=== PATIENT | male | born 1955 | race American Indian/Alaskan Native ===

== ENCOUNTER 2020-05-22 21:41 | Emergency (ER) | payer SELFPAY ==
--- NOTE | 2020-05-23 00:50 | XRay Report ---
"Right hand-3 views INDICATION: right thumb injury. COMPARISON: None. IMPRESSION: Transversely oriented fracture through the distal tuft of the thumb distal phalanx with overlying laceration. 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 Otherwise there are scattered degenerative changes throughout the hand. No retained radiopaque foreign body. Signer Name: Fernando Nelson MD Signed: 05/23/2020 12:46 AM Workstation Name: [id number] | [id number]"
[2020-05-23] MEDS ORDERED: DIPHtheria,PERTUSSIS(ACELL),TETANUS VACCINE/PF 0.5 ML VIAL IM ONE (02:09)
[2020-05-23] MEDS ORDERED: NEOMY 3.5 MG/BACIT 400 UNITS/POLY B 5000 UNITS/GM OINT PACKET TP STA (02:11)
--- NOTE | 2020-05-23 02:12 | Emergency Department Report ---
ED General Adult HPI - General Chief complaint: Extremity Injury, Upper Stated complaint: LACERATION/RT THUMB Time Seen by Provider: 05/23/20 01:36 Source: patient Mode of arrival: Ambulatory Limitations: No Limitations - History of Present Illness Initial comments: 64-year-old -Portuguese male patient presents with complaints of right thumb pain after slamming his finger in the door. He reports he has a cut to the finger and rates his pain as a 5/10 in severity. He denies any loss of sensation, but states there is decreased movement due to the swelling. He is unsure of his last tetanus vaccination. - Related Data Previous Rx's Medication Instructions Recorded Last Taken Type Acetaminophen/Codeine [Tylenol 1 tab PO Q8H PRN #6 tab 05/23/20 Unknown Rx /Codeine # 3 tab] Naproxen 500 mg PO BID PRN #14 tablet 05/23/20 Unknown Rx cephALEXin [Keflex] 500 mg PO Q8HR 7 Days #21 cap 05/23/20 Unknown Rx Allergies Allergy/AdvReac Type Severity Reaction Status Date / Time No Known Allergies Allergy Unverified 05/23/20 00:14 ED Review of Systems ROS: Stated complaint: LACERATION/RT THUMB Other details as noted in HPI Constitutional: denies: chills, fever, malaise Musculoskeletal: joint swelling, arthralgia Skin: as per HPI Neurological: denies: numbness, paresthesias ED Past Medical Hx - Past Medical History Previous Medical History?: Yes Hx Hypertension: Yes - Surgical History Past Surgical History?: No - Social History Smoking Status: Never Smoker Substance Use Type: None - Medications Home Medications: Home Medications Medication Instructions Recorded Confirmed Last Taken Type Acetaminophen/Codeine [Tylenol 1 tab PO Q8H PRN #6 tab 05/23/20 Unknown Rx /Codeine # 3 tab] Naproxen 500 mg PO BID PRN #14 tablet 05/23/20 Unknown Rx cephALEXin [Keflex] 500 mg PO Q8HR 7 Days #21 cap 05/23/20 Unknown Rx ED Physical Exam - General Limitations: No Limitations General appearance: alert, in no apparent distress - Head Head exam: Present: atraumatic, normocephalic - Eye Eye exam: Absent: scleral icterus - Respiratory Respiratory exam: Absent: respiratory distress - Cardiovascular Cardiovascular Exam: Present: regular rate, normal rhythm - Extremities Exam Extremities exam: Present: other (Moderate swelling noted to distal right thumb with small, <1 cm mildly bleeding, laceration noted to dorsal distal thumb; no obvious foreign bodies noted; normal sensation noted) ED Course Vital Signs 05/22/20 05/23/20 05/23/20 23:56 02:19 03:07 Temperature 98.3 F 98.1 F Pulse Rate 110 H 83 Respiratory 18 18 Rate Blood Pressure 172/101 176/110 Blood Pressure 176/110 [Left] O2 Sat by Pulse 98 98 Oximetry 05/23/20 03:47 Temperature 98.2 F Pulse Rate 83 Respiratory 18 Rate Blood Pressure Blood Pressure 151/94 [Left] O2 Sat by Pulse 98 Oximetry ED Medical Decision Making - Radiology Data Radiology results: report reviewed Right hand-3 views INDICATION: right thumb injury. COMPARISON: None. IMPRESSION: Transversely oriented fracture through the distal tuft of the thumb distal phalanx with overlying laceration. 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 Otherwise there are scattered degenerative changes throughout the hand. No retained radiopaque foreign body. - Medical Decision Making 64-year-old -Portuguese male patient presents with complaints of right thumb pain after slamming his finger in the door. He reports he has a cut to the finger and rates his pain as a 5/10 in severity. He denies any loss of sensation, but states there is decreased movement due to the swelling. He is unsure of his last tetanus vaccination. Open fracture of distal phalanx noted on x-ray. Patient finger soaked in Betadine saline mix and thoroughly irrigated. No sutures required. Patient given dose of Ancef and will discharge home with Keflex. Splint placed on finger. Blood pressure noted to be elevated at 172/101, patient admits to prior history however states he has not been on medications. He states he tried to follow-up with [facility] recently but cannot get an appointment. Blood pressure improved after 50 mg oral hydralazine. He is neurologically intact. Discussed importance of follow-up with orthopedics within 24 to 48 hours along with primary care for further evaluation of his blood pressure.. Also discussed signs and symptoms that should prompt immediate return to the emergency department in detail with patient who verbalizes understanding. Patient is stable for discharge home peer Critical care attestation.: If time is entered above; I have spent that time in minutes in the direct care of this critically ill patient, excluding procedure time. ED Disposition Clinical Impression: Elevated blood pressure reading without diagnosis of hypertension Open fracture of right thumb Qualifiers: Encounter type: initial encounter Phalanx: distal Fracture alignment: displaced Qualified Code(s): S62.521B - Displaced fracture of distal phalanx of right thumb, initial encounter for open fracture Disposition: TO HOME OR SELFCARE Is pt being admited?: No Condition: Stable Instructions: Humerus Fracture Treated With ORIF, Thumb Fracture, Wound Care, Adult, Hypertension, Adult, Cast or Splint Care, Adult Prescriptions: cephALEXin [Keflex] 500 mg PO Q8HR 7 Days #21 cap Naproxen 500 mg PO BID PRN #14 tablet PRN Reason: Pain, Moderate (4-6) Acetaminophen/Codeine [Tylenol /Codeine # 3 tab] 1 tab PO Q8H PRN #6 tab PRN Reason: Pain , Severe (7-10) Referrals: [facility] [Provider Group] - 05/24/20 (Open fracture of right thumb) [facility] [Provider Group] - 2-3 Days (Elevated Blood Pressure )
[2020-05-23] MEDS ORDERED: hydrALAZINE 25 MG TAB PO ONE (02:53)
[2020-05-23 03:48] VITALS: BP 151/94
== END 2020-05-23 04:07 | disposition home or self-care (01) ==
LOC: ED 21:41
DX: S62.521B Displaced fracture of distal phalanx of right thumb, initial encounter for open fracture (principal); I10 Essential (primary) hypertension; R03.0 Elevated blood-pressure reading, without diagnosis of hypertension; Z79.899 Other long term (current) drug therapy; W45.8XXA Other foreign body or object entering through skin, initial encounter; Y93.89 Activity, other specified; Y92.009 Unspecified place in unspecified non-institutional (private) residence as the place of occurrence of the external cause; Y99.8 Other external cause status
CPT/HCPCS: 29130; 73130; 90471; 90715; 96365; 99284; A6250; J0690

== ENCOUNTER 2021-08-29 13:27 | Emergency (ER) | payer OTHER ==
--- NOTE | 2021-08-29 14:42 | XRay Report ---
CHEST 2 VIEWS INDICATION / CLINICAL INFORMATION: Chest pain. COMPARISON: None available. FINDINGS: SUPPORT DEVICES: None. HEART / MEDIASTINUM: The heart size and pulmonary vasculature are normal. The aorta is normal in vinnie kathy. LUNGS / PLEURA: No significant pulmonary or pleural abnormality. No pneumothorax. ADDITIONAL FINDINGS: No significant additional findings. IMPRESSION: No acute findings. Signer Name: Mitch Herbert MD Signed: 08/29/2021 2:36 PM Workstation Name: [id number]
--- NOTE | 2021-08-29 15:14 | Cat Scan Report ---
CT BRAIN: 08/29/2021 INDICATION / CLINICAL INFORMATION: dizziness. COMPARISON: None available. FINDINGS: BRAIN/INTRACRANIAL STRUCTURES: Unenhanced CT images of the brain demonstrate no evidence of acute abn ormality. Ventricles and sulci are prominent in size, consistent with diffuse cerebral atrophy. Incidental note is made of a small cavum vellum interpositum, an incidental finding only. Moderate chronic white matter hypoattenuation is present in the periventricular deep white matter of cerebral hemispheres. There is no evidence of acute large vessel territory ischemic injury, hemorrhage, or mass. There are no abnormal extra-axial fluid collections. EXTRACRANIAL STRUCTURES: Unremarkable. IMPRESSION: No acute abnormality. All CT scans at this location are performed using dose reduction to ALARA by means of automated expos ure control. Signer Name: Torito Murray MD Signed: 08/29/2021 3:10 PM Workstation Name: [id number]
[2021-08-29 15:27] LABS: Alanine Aminotransferase 19 units/L (7-56); Albumin 4.6 g/dL (3.9-5); BUN/Creatinine Ratio 14; Blood Urea Nitrogen 15 mg/dL (9-20); Calcium 10.4 mg/dL (8.4-10.2); Hemolysis Index 8
[2021-08-29 15:28] LABS: Hematocrit 48.7 % (35.5-45.6); Hemoglobin 16.3 gm/dl (11.8-15.2); Mean Corpuscular HGB Conc 33 % (32-34); Mean Corpuscular Volume 86 fl (84-94); Red Blood Count 5.64 M/mm3 (3.65-5.03); Red Cell Distribution Width 14.5 % (13.2-15.2)
[2021-08-29 15:29] LABS: Platelet Count 202 K/mm3 (140-440)
--- NOTE | 2021-08-29 16:59 | Emergency Department Report ---
ED Dizziness HPI - General Chief Complaint: Dizziness Stated Complaint: DIZZINESS, EYE TURNING Time Seen by Provider: 08/29/21 14:08 Source: patient Mode of arrival: Ambulatory Limitations: No Limitations - History of Present Illness Initial Comments: 66-year-old male with no past medical history presents to the emergency department for evaluation of dizziness. He states that when he woke up yesterday that he had some dizziness and felt like his eyes were "turning". He states that he was able to do all of his regular activities yesterday and felt better today but states that he decided to come in just to see what caused it. He denies chest pain, shortness of breath, nausea, vomiting, diaphoresis, fever, abdominal pain, vision changes, and headache. He states that he has never had this type of symptoms before. MD Complaint: dizziness, lightheadedness -: Sudden, days(s) Timing: sudden onset (1) Description: "room spinning", lightheadedness History of Same: No History of Trauma: No Severity: mild Associated Symptoms: denies: chest pain, confusion, cough, diaphoresis, fever/chills, loss of appetite, malaise, seizure, shortness of breath, syncope, weakness - Related Data Previous Rx's Medication Instructions Recorded Last Taken Type Acetaminophen/Codeine [Tylenol 1 tab PO Q8H PRN #6 tab 05/23/20 Unknown Rx /Codeine # 3 tab] Naproxen 500 mg PO BID PRN #14 tablet 05/23/20 Unknown Rx cephALEXin [Keflex] 500 mg PO Q8HR 7 Days #21 cap 05/23/20 Unknown Rx Allergies Allergy/AdvReac Type Severity Reaction Status Date / Time No Known Allergies Allergy Unverified 08/29/21 13:48 ED Review of Systems ROS: Stated complaint: DIZZINESS, EYE TURNING Other details as noted in HPI Comment: All other systems reviewed and negative Constitutional: denies: chills, diaphoresis, fever, malaise, weakness Eyes: denies: eye pain, eye discharge, vision change ENT: denies: ear pain, throat pain, epistaxis, congestion Respiratory: denies: cough, orthopnea, SOB at rest Cardiovascular: denies: chest pain, palpitations, dyspnea on exertion, orthopnea, edema, syncope, paroxysmal nocturnal dyspnea Endocrine: no symptoms reported Gastrointestinal: denies: abdominal pain, nausea, vomiting, diarrhea, hematemesis, melena, hematochezia Genitourinary: denies: urgency, dysuria, frequency, hematuria, discharge, testicular pain Musculoskeletal: denies: back pain, joint swelling Skin: denies: rash, lesions Neurological: denies: headache, weakness, numbness, paresthesias, abnormal gait, vertigo Psychiatric: denies: anxiety Hematological/Lymphatic: denies: easy bleeding, easy bruising ED Past Medical Hx - Past Medical History Previous Medical History?: Yes Hx Hypertension: Yes - Surgical History Past Surgical History?: No - Social History Smoking Status: Never Smoker Substance Use Type: None - Medications Home Medications: Home Medications Medication Instructions Recorded Confirmed Last Taken Type Acetaminophen/Codeine [Tylenol 1 tab PO Q8H PRN #6 tab 05/23/20 Unknown Rx /Codeine # 3 tab] Naproxen 500 mg PO BID PRN #14 tablet 05/23/20 Unknown Rx cephALEXin [Keflex] 500 mg PO Q8HR 7 Days #21 cap 05/23/20 Unknown Rx ED Physical Exam - General Limitations: No Limitations General appearance: alert, in no apparent distress - Head Head exam: Absent: atraumatic, normocephalic - Eye Eye exam: Present: normal appearance. Absent: conjunctival injection - ENT ENT exam: Present: normal exam, normal orophraynx - Neck Neck exam: Present: normal inspection. Absent: tenderness, lymphadenopathy - Respiratory Respiratory exam: Present: normal lung sounds bilaterally. Absent: respiratory distress, wheezes, rales, rhonchi, stridor, chest wall tenderness, accessory muscle use - Cardiovascular Cardiovascular Exam: Present: regular rate, normal heart sounds - GI/Abdominal GI/Abdominal exam: Present: soft, normal bowel sounds. Absent: distended, tenderness, guarding, rebound, rigid - Extremities Exam Extremities exam: Present: normal inspection - Back Exam Back exam: Present: normal inspection. Absent: tenderness, CVA tenderness (R), CVA tenderness (L), paraspinal tenderness, vertebral tenderness - Neurological Exam Neurological exam: Present: alert, oriented X3 - Expanded Neurological Exam Expanded Patient oriented to: Present: person, place, time Speech: Present: fluid speech Cranial nerves: EOM's Intact: Normal, Nystagmus: Normal, Facial Sensation: Normal, Facial Palsy with Forehead Movement: Normal, Facial Palsy without Forehead Movement: Normal Ataxia: Absent: yes Best Eye Response ([place]): (4) open spontaneously Best Motor Response ([place]): (6) obeys commands Best Verbal Response ([place]): (5) oriented Antonella Total: 15 - Psychiatric Psychiatric exam: Present: normal affect, normal mood - Skin Skin exam: Present: warm, dry, intact, normal color ED Course Vital Signs 08/29/21 13:41 Temperature 98.7 F Pulse Rate 95 H Respiratory 14 Rate Blood Pressure 179/109 O2 Sat by Pulse 97 Oximetry ED Medical Decision Making - Lab Data Result diagrams: 08/29/21 14:42 08/29/21 14:42 - EKG Data EKG shows normal: sinus rhythm Rate: normal - EKG Data Interpretation: no acute changes, normal EKG 08/29/21 17:30 No acute ischemic changes noted. No arrhythmia noted. - Radiology Data Radiology results: report reviewed, image reviewed CT scan here IMPRESSION: No acute abnormality. Chest x-ray IMPRESSION: No acute findings. - Medical Decision Making 66-year-old male with no past medical history presents to the emergency department for evaluation of dizziness. He states that when he woke up yesterday that he had some dizziness and felt like his eyes were "turning". He states that he was able to do all of his regular activities yesterday and felt better today but states that he decided to come in just to see what caused it. He denies chest pain, shortness of breath, nausea, vomiting, diaphoresis, fever, abdominal pain, vision changes, and headache. He states that he has never had this type of symptoms before. CMP and CBC without any gross abnormalities. Troponin within normal limits and EKG without any acute ischemic abnormalities. CT scan of head without any acute abnormalities. Patient denies symptoms at this time, and no acute distress noted. He has resolved dizziness of unknown origin. He was advised to monitor and record blood pressure and follow-up with his primary care provider for further evaluation and management of elevated blood pressure readings. He was advised to follow-up with primary care provider for further evaluation. He verbalized understanding of and agreement with plan of care. Critical care attestation.: If time is entered above; I have spent that time in minutes in the direct care of this critically ill patient, excluding procedure time. ED Disposition Clinical Impression: Dizziness Disposition: 01 HOME / SELF CARE / HOMELESS Is pt being admited?: No Does the pt Need Aspirin: No Condition: Stable Instructions: Dizziness, [id number] Additional Instructions: Follow-up with primary care provider for further evaluation. Return to the emergency department for worsening symptoms. Referrals: OLEKSANDR KOO MD [Referring] - 3-5 Days Time of Disposition: 16:59
[2021-08-29 18:10] VITALS: BP 135/76
--- NOTE | 2021-08-30 10:27 | Electrocardiograph Report ---
[facility] Test Date: 2021-08-29 Test Time: 16:45:58 Pat Name: AYANNA RODRIGUEZ Department: Room: Gender: M [employer] Architect: CARLOS : 1955 Requested By: DILIP SALMON Order Number: [id number] Reading MD: Jeevan Ryan Measurements Intervals [place] Rate: 74 P: 72 HI: 170 QRS: -25 QRSD: 101 T: 57 QT: 364 QTc: 405 Interpretive Statements Sinus rhythm LVH with secondary repolarization abnormality nonspecific st-t No previous ECG available for comparison Electronically Signed On 08-30-2021 10:26:47 EST by Jeevan Ryan
== END 2021-08-29 18:08 | disposition home or self-care (01) ==
LOC: ED 13:27
DX: R42 Dizziness and giddiness (principal); I10 Essential (primary) hypertension; Z79.899 Other long term (current) drug therapy
CPT/HCPCS: 36415; 70450; 71046; 80053; 84484; 85027; 93005; 99284